=== PATIENT | female | born 1990 | race American Indian/Alaskan Native ===

== ENCOUNTER 2024-09-10 08:21 | Emergency (ER) | payer BC ==
[2024-09-10] MEDS: Ibuprofen 400 MG Tab PO ONE (09:25)
[2024-09-10 09:53] LABS: CORONAVIRUS COVID-19 NAA NEGATIVE (NEGATIVE); INFLUENZA A NAA NEGATIVE (NEGATIVE); INFLUENZA B NAA NEGATIVE (NEGATIVE); RESPIRATORY SYNCYTIAL VIR NAA POSITIVE (NEGATIVE)
== END 2024-09-10 10:47 | disposition home or self-care (01) ==
LOC: JP.ED 08:21
DX: J21.0 Acute bronchiolitis due to respiratory syncytial virus (principal); Z88.2 Allergy status to sulfonamides
CPT/HCPCS: 0241U; 99284; A9270